=== PATIENT | male | born 1980 | race Caucasian/White ===

== ENCOUNTER → 2020-05-13 | Emergency (ER) | payer SELFPAY ==
[~2020-05-13] VITALS: Ht 180.3 cm; Wt 86.2 kg
[~2020-05-13] MED LIST: Dicyclomine HCl 10mg/5ml oral soln ORAL ONE; NARCAN4 MG NS
[2020-05-13 14:41] VITALS: BP 154/80
--- NOTE | 2020-05-13 14:41 | NUR ---
ED Nurse Note: pt BIBA RA 63 accompanied by [employer] under custody. Pt admits to doing heroine, meth, and fentanyl. Pt appears to be lethargic oriented x 3 and verbalized "not feeling good," pt is clamy, diaphoretic, sinus tachycardia on the monitor HR 112. Breathing is even and unlabored on room air 100%. Other vital signs stable as documented.
--- NOTE | 2020-05-13 15:14 | Emergency Room Report ---
History of Present Illness General Chief Complaint: Medical Clearance Source: Patient Present Illness HPI 47 YO male presents to the ED for Medical clearance prior to being booked. Pt. was found with his friend in a car s/p doing heroin, fentanyl and meth. Pt. presents in custody with [employer]. He was not given narcan [employer]. He was c/o upset stomach so L[facility]D administered 4mg ODT zofran as he was experiencing nausea. Pt. reports he continues to have abdominal symptoms and reports he feels as though he is going to have diarrhea. according to DENNY pt. was sweaty about 15 minutes prior to MSE. Pt. denies CP, SOB, palpitations, Dizziness, sudden onset DIAMOND, paresthesias, fevers/chills or ST infections. Pt. reports to using IV drug route. Pt. reports last use was several hours ago. Pt. denies medical problems other than substance abuse. Patient denies any heart or liver conditions. He denies cough. He reports abdominal pain is 5 out of 10 in severity and is cramping and intermittent in nature. He denies abdominal tenderness. He denies dysuria, hematuria or urinary frequency. He denies psychiatric conditions. Allergies: Coded Allergies: No Known Allergies (Unverified , 05/13/20) COVID-19 Screening Contact w/high risk pt: No Experienced COVID-19 symptoms?: No COVID-19 Testing performed SLUR[employer] T[employer]ER: No Patient History Past Medical History: see triage record Past Surgical History: none Pertinent Family History: none Social History: Reports: drug use Reviewed Nursing Documentation: PMH: Agreed; PSxH: Agreed Nursing Documentation-PMH Past Medical History: No Stated History Review of Systems All Other Systems: negative except mentioned in HPI Physical Exam Vital Signs Date Time Temp Pulse Resp B/P (MAP) Pulse Ox O2 Delivery O2 Flow Rate FiO2 05/13/20 14:25 98.1 109 18 155/88 (110) 99 Room Air Sp02 EP Interpretation: reviewed, normal General Appearance: no apparent distress, alert, GCS 15, non-toxic Head: normocephalic, atraumatic Eyes: bilateral eye normal inspection, bilateral eye PERRL ENT: hearing grossly normal, normal pharynx, normal voice Neck: full range of motion, no meningismus, no bony tend Respiratory: chest non-tender, lungs clear, normal breath sounds, no respiratory distress, no accessory muscle use, no wheezing, speaking full sentences Cardiovascular #1: regular rate, rhythm, normal capillary refill Cardiovascular #2: 2+ radial (R), 2+ radial (L) Gastrointestinal: normal bowel sounds, non tender, soft, no peritonitis, non- distended, no guarding Rectal: deferred Musculoskeletal: back normal, normal range of motion, gait/station normal, non- tender Neurologic: alert, motor strength/tone normal, oriented x3, sensory intact, responsive, speech normal Psychiatric: judgement/insight normal, mood/affect normal, no suicidal/homicidal ideation, anxious Skin: no rash, normal color, warm/dry, other - Track donovan on the right AC and forearm. No evidence of acute infection/cellulitis or abscess. No petechai, blisters or vesicles. -- Per RN and [employer] just prior to arrival pt. diaphoretic and resolved spontaneously Lymphatic: no adenopathy Medical Decision Making PA Attestation Dr. Borrero is my supervising Physician whom patient management has been discussed with. Diagnostic Impression: Primary Impression: Acute drug intoxication Qualified Codes: F19.920 - Other psychoactive substance use, unspecified with intoxication, uncomplicated Additional Impressions: Acute drug withdrawal syndrome without complication Medical clearance for incarceration ER Course 47 YO male presents to the ED for Medical clearance prior to being booked. Pt. was found with his friend in a car s/p doing heroin, fentanyl and meth. Pt. presents in custody with [employer]. He was not given narcan [employer]. He was c/o upset stomach so L[employer]D administered 4mg ODT zofran as he was experiencing nausea. Pt. reports he continues to have abdominal symptoms and reports he feels as though he is going to have diarrhea. According to [employer] pt. was sweaty about 15 minutes prior to MSE. Pt. denies CP, SOB, palpitations, Dizziness, sudden onset DIAMOND, paresthesias, fevers/chills or ST infections. Pt. reports to using IV drug route. Pt. reports last use was several hours ago. Pt. denies medical problems other than substance abuse. Patient denies any heart or liver conditions. He denies cough. He reports abdominal pain is 5 out of 10 in severity and is cramping and intermittent in nature. He denies abdominal tenderness. He denies dysuria, hematuria or urinary frequency. He denies psychiatric conditions. Ddx considered but are not limited to Head Trauma, MS, ACS, SI/HI, URI, SAH, Fractures, Dislocations, Tazer barbs, Abrasions, acute psychosis, drug intoxication. Vital signs: are WNL, pt. is afebrile H&PE are most consistent with: normal limited physical examination. With symptoms c/w opiate w/d. Pt. NAD and non-toxic in appearance on Exam. not diaphoretic at this time. Pt. requesting water. --Patient is demonstrating signs and symptoms consistent with acute opiate withdrawal. ORDERS: -EK sinus tachycardia --no ST elevation, no alternative signs of ischemia ED INTERVENTIONS: -Bentyl 20mg PO ---I do not identify an emergent condition at this time. With current presentation, pt. is stable for close outpatient follow up and conservative treatment. D/w pt. to return promptly to ED with worsening or new symptoms.- Pt. verbalizes' understanding and agreement with proposed treatment plan. DISCHARGE: At this time pt. is stable for d/c to law enforcement. Will provide printed patient care instructions, and any necessary prescriptions. Care plan and follow up instructions have been discussed with the patient prior to discharge. EKG Diagnostic Results EP Interpretation: Dr. Borrero Rate: tachycardiac - 107 Rhythm: NSR ST Segments: no acute changes Other Impression No S1Q3T3, or evidence of ischemia ASA given to the pt in ED: No PA Scribe Text This Interpretation was scribed by ESEQUIEL Vallecillo. Last Vital Signs Date Time Temp Pulse Resp B/P (MAP) Pulse Ox O2 Delivery O2 Flow Rate FiO2 05/13/20 14:25 98.1 109 18 155/88 (110) 99 Room Air Status: unchanged Disposition: LAW ENFORCEMENT IN CUST Condition: Stable Scripts Naloxone HCl (Narcan) 4 Mg [place] 4 MG NS PRN, #2 SPRAY Prov: Debbie Vallecillo 05/13/20 Referrals: Malaika Joel [facility] + [facility] Patient Instructions: Medical Screening Exam, Opioid Withdrawal Additional Instructions: Take medications as directed. YOU ARE BEING RX'D NARCAN YOU HAVE BEEN IDENTIFIED HIGH RISK OF POTENTIAL OVERDOSE Follow up with a Primary Care Provider in 3-5 days, even if your symptoms have resolved. RECOMMEND DRUG & ALCOHOL DEPENDENCE RESOURCES PROVIDED --Please review list of primary care clinics, if you do not already have a primary care provider Return sooner to ED if new symptoms occur, or current symptoms become worse. - Please note that this Emergency Department Report was dictated using bublprototype carpenter technology software, occasionally this can lead to erroneous entry secondary to interpretation by the dictation equipment. Debbie Vallecillo May 13, 2020 15:14
--- NOTE | 2020-05-14 13:54 | Cardiology Report ---
APPROVED REPORT EKG Measurement Heart [id number] ND 146P-2 [id number] <Conclusion> Sinus tachycardia Otherwise normal ECG
== END ==
LOC: EDBD 14:41 → EMR 15:00 → EDBD 15:00
DX: F19.920 Other psychoactive substance use, unspecified with intoxication, uncomplicated (principal); F19.939 Other psychoactive substance use, unspecified with withdrawal, unspecified; R00.0 Tachycardia, unspecified
CPT/HCPCS: 93005; 99283